=== PATIENT | male | born 1945 | race Caucasian/White ===

== ENCOUNTER 2016-10-05 09:55 | Day surgery (SDC) | payer MEDICARE, BC ==
[~2016-10-05 09:55] MED LIST: AMLO5TAB96 PO; ATOR40TA49 PO; COZA50TA PO; ECOT325T PO; PRESCAP5 PO; PRIL20CA PO
[2016-10-05 10:53] VITALS: BP 130/81; PULSE 78; RESP 16; TEMP 98; O2SAT 93
[2016-10-05 11:45] VITALS: BP 154/89; PULSE 66; RESP 20; TEMP 95.6; O2SAT 97
[2016-10-05 12:00] VITALS: BP 127/80; PULSE 62; RESP 16; O2SAT 94
--- NOTE | 2016-10-05 12:16 | RADRPT ---
EXAM DATE/TIME: 10/05/2016 11:00 [place] COMPARISON: No previous studies available for comparison. EXTERNAL COMPARISON: [facility], CT SOFT TISSUE NECK, W/O CONTRAST, Sep 13 2016 INDICATIONS : Right neck lymph node mass. MEDICAL HISTORY : Hypertension. Hypercholesterolemia. Chronic obstructive pulmonary disease. GERD. Transient dysphagia. Arthritis. PVD. SURGICAL HISTORY : Right cataract removed. ENCOUNTER: Initial ACUITY: 3 months PAIN SCORE: 4/10 LOCATION: Right neck ORGAN: Right lymph node of neck. SPECIMENS: Three core specimen(s) submitted for pathologic evaluation. DEVICE: 18 gauge Bio Pince needle Post procedure scanning reveals no hematoma or other complication. The possibility does exist that the tissue obtained will be non-diagnostic. If the sample is non-julio gnostic a repeat biopsy or surgical biopsy may need to be performed. TECHNIQUE: 1. Ultrasound guidance for needle biopsy. 2. Needle biopsy. The risks, benefits, and alternatives to ultrasound guided needle biopsy were explained to the patien t in detail including the risk of bleeding and infection. Written and verbal informed consent was ob tained. With the patient on the ultrasound table, images were obtained. Overlying skin was prepped and drape d in the usual sterile fashion and Lidocaine was utilized as a local anesthetic. Under ultrasound guidance 2 cc of viscous mildly hemorrhagic cream colored fluid was removed and sent for culture and Gram stain. Solid component was then biopsied the 19 gauge core needle. The patient tolerated the procedure well and left the ultrasound suite in stable condition. CONCLUSION: Uncomplicated ultrasound guided needle biopsy and Aspiration. Material was sent for Gram stain, cyto logy, pathology and culture. Cristiano Zimmerman MD FACR on October 05, 2016 at 12:12 Board Certified Radiologist. This report was verified electronically.
[2016-10-05] MEDS ORDERED: LIDOCAINE HCL 1% PF 30 ML VIAL ONE (12:53)
== END 2016-10-05 12:25 | disposition home or self-care (01) ==
LOC: HRAD 09:55 → HRIP 09:58 → HRAD 12:25
PROVIDERS: ATTEND Otolaryngology
DX: C77.0 Secondary and unspecified malignant neoplasm of lymph nodes of head, face and neck (principal); C80.1 Malignant (primary) neoplasm, unspecified; I10 Essential (primary) hypertension; E78.00 Pure hypercholesterolemia, unspecified; J44.9 Chronic obstructive pulmonary disease, unspecified; K21.9 Gastro-esophageal reflux disease without esophagitis; M19.90 Unspecified osteoarthritis, unspecified site; I73.9 Peripheral vascular disease, unspecified
CPT/HCPCS: 38505; 76942; 87070; 87205; 88305; 88333; 88341; 88342